=== PATIENT | male | born 1990 | race African-American/Black ===

== ENCOUNTER 2020-07-09 06:45 | Emergency (ER) | payer SELFPAY ==
[~2020-07-09] VITALS: Ht 177.8 cm; Wt 68.0 kg
[2020-07-09] MEDS ORDERED: LORAZEPAM 2MG/ML CPJ IV ONE (07:15)
[2020-07-09 08:54] LABS: BASOPHILS % 0.9 % (0.0-2.0); EOSINOPHILS % 5.7 % (0.0-5.0); HEMATOCRIT. 41.8 % (42.0-52.0); HEMOGLOBIN. 13.9 g/dL (14.0-18.0); LYMPHOCYTES % 39.5 % (20.0-50.0); MEAN CORPUSCULAR HEMOGLOBIN 32.2 pg (28.0-32.0); MEAN CORPUSCULAR VOLUME 96.6 fL (80.0-94.0); MONOCYTES % 9.9 % (2.0-8.0); PLATELET 184 x1000/uL (130-400); RED BLOOD CELL COUNT 4.32 mill/uL (4.7-6.1); RED CELL DISTRIBUTION WIDTH 13.4 % (11.6-14.6)
[2020-07-09 09:01] LABS: CHLORIDE 106 mEq/L (98-107)
[2020-07-09 16:00] VITALS: BP 118/72
== END 2020-07-09 17:20 | disposition home or self-care (01) ==
LOC: ER 06:45
DX: R56.9 Unspecified convulsions (principal); R41.0 Disorientation, unspecified; Z88.3 Allergy status to other anti-infective agents
CPT/HCPCS: 36415; 80053; 85025; 93005; 96374; 99285; J2060

== ENCOUNTER 2021-01-08 13:07 | Emergency (ER) | payer SELFPAY ==
[~2021-01-08] VITALS: Ht 177.8 cm; Wt 81.6 kg
[2021-01-08] MEDS ORDERED: PHENYTOIN SODIUM 1,000 MG in SODIUM CHLORIDE 0.9% 100 ML IV ONE (13:45)
[2021-01-08 14:20] LABS: BASOPHILS % 1.2 % (0.0-2.0); EOSINOPHILS % 7.3 % (0.0-5.0); HEMATOCRIT. 43.9 % (42.0-52.0); HEMOGLOBIN. 14.3 g/dL (14.0-18.0); LYMPHOCYTES % 33.1 % (20.0-50.0); MEAN CORPUSCULAR VOLUME 95.1 fL (80.0-94.0); MEAN PLATELET VOLUME 8.3 fl (7.4-10.4); MONOCYTES % 9.6 % (2.0-8.0); NEUTROPHILS % 48.8 % (40.0-76.0); PLATELET 226 x1000/uL (130-400); RED BLOOD CELL COUNT 4.62 mill/uL (4.7-6.1); RED CELL DISTRIBUTION WIDTH 13.8 % (11.6-14.6)
[2021-01-08 14:23] LABS: CHLORIDE 110 mEq/L (98-107)
[2021-01-08 14:26] LABS: ETHANOL BLOOD < 10 mg/dL
[2021-01-08 15:51] LABS: CLARITY URINE CLEAR (CLEAR); COLOR URINE DARK YELLOW (YELLOW); KETONES URINE 1+ (NEGATIVE); LEUKOCYTE ESTERASE URINE 2+ (NEGATIVE); NITRITE URINE NEGATIVE (NEGATIVE); OCCULT BLOOD URINE NEGATIVE (NEGATIVE); PROTEIN URINE NEGATIVE (NEGATIVE); SPECIFIC GRAVITY URINE 1.032 (1.005-1.030)
[2021-01-08 16:11] LABS: *AMPHETAMINES SCREEN URINE PRESUMTIVE POSITIVE (NEGATIVE); *BARBITURATES SCREEN URINE NEGATIVE (NEGATIVE); *BENZODIAZEPINES SCREEN URINE NEGATIVE (NEGATIVE); *COCAINE SCREEN URINE NEGATIVE (NEGATIVE); METHADONE URINE SCREEN NEGATIVE (NEGATIVE)
[2021-01-08 16:12] LABS: CANNABINOID URINE SCREEN PRESUMTIVE POSITIVE (NEGATIVE); OPIATES URINE SCREEN NEGATIVE (NEGATIVE); PHENCYCLIDINE URINE SCREEN NEGATIVE (NEGATIVE)
[2021-01-08] MEDS ORDERED: POTASSIUM CHLORIDE 20MEQ TABLET SR PO ONE (17:00)
[2021-01-08 17:20] VITALS: BP 113/59
[2021-01-08] MEDS ORDERED: PHEN100C4 MT (17:41)
== END 2021-01-08 18:34 | disposition home or self-care (01) ==
LOC: ER 13:13
DX: R56.9 Unspecified convulsions (principal); S62.624A Displaced fracture of middle phalanx of right ring finger, initial encounter for closed fracture; F17.200 Nicotine dependence, unspecified, uncomplicated; W51.XXXA Accidental striking against or bumped into by another person, initial encounter; Y93.89 Activity, other specified; Y92.9 Unspecified place or not applicable; Z88.8 Allergy status to other drugs, medicaments and biological substances; Z91.14 Patient's other noncompliance with medication regimen
CPT/HCPCS: 29125; 36415; 73130; 80053; 80185; 80305; 80320; 81003; 85025; 93005; 96374; 99285; J1165; J7040; J7050; Z7610; G0480